=== PATIENT | male | born 1945 | race Caucasian/White ===

== ENCOUNTER 2017-08-28 06:32 | Day surgery (SDC) | payer MEDICARE ==
[~2017-08-28] VITALS: Ht 182.9 cm; Wt 62.4 kg
[2017-08-28] VITALS (12 sets, daily range): BP systolic 128–149; BP diastolic 64–77; PULSE 76–90; RESP 16–18; TEMP 97.7–98.6; O2SAT 96–100
[2017-08-28] MEDS ORDERED: IOHEXOL 350 MG/ML 100 ML BTL (for Cath Lab) OTHER ONE (06:33)
[2017-08-28] MEDS ORDERED: DO NOT GIVE AM GLUCOPHAGE, GLUCOPHAGE XR, GLIPIZIDE, GLYBURIDE OR AVANDAMET PRN (07:00)
[2017-08-28] MEDS ORDERED: SODIUM CHLOR 0.9% 1000 ML INJ 1,000 ML IV SCH (07:00)
[2017-08-28] MEDS ORDERED: SODIUM CHLORIDE 0.9% FLUSH 10 ML FLUSH IV FLUSH PRN ×2 (07:00)
[2017-08-28] MEDS ORDERED: PROC10TA PO (07:29)
[2017-08-28] MEDS ORDERED: CILO100T PO (07:29)
[2017-08-28] MEDS ORDERED: K-TA10TA PO (07:29)
[2017-08-28] MEDS ORDERED: ONDA1TAB17 PO (07:29)
[2017-08-28] MEDS ORDERED: ASPI81TA11 PO (07:29)
[2017-08-28] MEDS ORDERED: VITA1000 PO (07:29)
[2017-08-28] MEDS ORDERED: BUPR300T PO (07:29)
[2017-08-28] MEDS ORDERED: LACT1TAB12 PO (07:29)
[2017-08-28] MEDS ORDERED: MULT-65 PO (07:29)
[2017-08-28] MEDS ORDERED: DILT-60 PO (07:29)
[2017-08-28] MEDS ORDERED: AMOX500C PO (07:29)
[2017-08-28] MEDS ORDERED: BENA25CA4 PO (07:29)
[2017-08-28] MEDS ORDERED: PARO40TA2 PO (07:29)
[2017-08-28] MEDS ORDERED: NIVO1INJ IV (07:29)
[2017-08-28] MEDS ORDERED: ALEV220T14 PO (07:29)
[2017-08-28] MEDS ORDERED: MIDAZOLAM HCL 2 MG/2 ML VIAL ONE ×2 (08:48→09:46)
[2017-08-28] MEDS ORDERED: HEPARIN SODIUM - IV 10,000 UNITS/10 ML VIAL ONE (08:49)
[2017-08-28] MEDS ORDERED: HEPARIN-NS/PF INJ 1,000 ML ONE ×2 (08:56→09:06)
[2017-08-28] MEDS ORDERED: CLOPIDOGREL 300 MG TAB ONE (10:34)
[2017-08-28] MEDS ORDERED: hydrALAZINE HCL 20 MG/ML VIAL ONE (10:35)
[2017-08-28] MEDS ORDERED: PROTAMINE SULFATE 50 MG/5 ML VIAL ONE (10:41)
[2017-08-28] MEDS ORDERED: PLAV75TA29 PO (10:48)
[2017-08-28] MEDS ORDERED: oxyCODONE/ACETAMINOPHEN 5 MG/325 MG TAB PO PRN (11:00)
[2017-08-28] MEDS ORDERED: oxyCODONE/ACETAMINOPHEN 10 MG/325 MG TAB PO PRN (11:00)
[2017-08-28] MEDS ORDERED: MORPHINE SULFATE 4 MG/ML INJ IV PUSH PRN (11:00)
[2017-08-28] MEDS ORDERED: ACETAMINOPHEN 325 MG TAB PO PRN (11:00)
--- NOTE | 2017-08-28 11:22 | MA ---
cc: MARK DENT DATE: 08/28/2017 INDICATION Nonhealing ulcer, left lower extremity. PROCEDURE PERFORMED 1. Fluoroscopy with interpretation. 2. Descending aortography. 3. Left lower extremity peripheral angiography with first, second and third order visualization and interpretation. 4. Orbital rotational atherectomy, balloon angioplasty and drug-eluting balloon of the left superficial femoral artery. 5. Percutaneous endovascular stenting of chronically occluded left external iliac artery. METHOD The risks, benefits and alternatives were discussed with the patient. The patient understood and consented to the procedure. The patient was brought into the catheterization lab and placed on the catheterization table. The right groin was prepped and draped in sterile fashion. The right groin was anesthetized with 2% lidocaine. The common femoral artery was cannulated and a 5 Fijian, 11 cm sheath was placed without difficulty. DESCENDING AORTOGRAPHY Descending aortography was performed anterior and posterior using a 24 cc contrast injection with good opacification. The descending aortography revealed mild infrarenal descending aortic atherosclerosis. Bilateral renal arteries were widely patent. LEFT LOWER EXTREMITY PERIPHERAL ANGIOGRAPHY 1. Left common and internal iliac arteries have minor luminal irregularities. 2. Left external iliac artery is occluded. 3. Left common femoral artery recanalizes in the proximal segment via collaterals. 4. Left profunda artery is widely patent. 5. Left superficial femoral artery has a calcified 75% stenosis in the midsegment. 6. Left popliteal artery has minor luminal irregularities. 7. There is three-vessel runoff. 8. Anterior tibial, posterior tibial and peroneal vessels have minor luminal irregularities. PERCUTANEOUS INTERVENTION Given the patient's nonhealing ulcer we elected attempt at endovascular revascularization to help speed along healing. A 6 Fijian, 45 cm Vennli Destination Marshall sheath was advanced up-and-over the arch. A 0.035 inch, 260 cm stiff angle Glidewire was navigated behind a Trailblazer catheter through the chronic occlusion and down into the distal anterior tibial vessel. Digital subtraction angiography confirmed intraluminal placement. A 6.0 x 120 mm Medtronic balloon was deployed in the left external iliac artery. Repeat angiography showed SHASHANK-III flow but a dissection flap was present. Several prolonged inflations were performed but we were unable to tack the dissection flap up at the distal reentry in the proximal common femoral. We elected to proceed with endovascular stenting of the left external down towards the left common femoral but not passing the inferior epigastric artery. An 8.0 x 80 mm Medtronic self-expanding stent was deployed and post dilated. A 2.0 mm CSI atherectomy catheter was then prepped and orbital rotational atherectomy performed in the left superficial femoral artery followed by 6.0 x 100 mm prolonged drug-coated balloon inflation. Repeat angiography showed no significant residual stenosis. Heparin was administered throughout the entire procedure to maintain appropriate anticoagulation. At this point he had palpable distal pulses. Hopefully this will translate well with symptomatic improvement. Will see if the dissection in the left common femoral heels and tacks itself up. If not, he may be a candidate just to have a local common femoral arterectomy and avoid a fem-fem bypass. Will initiate Plavix. Will monitor closely for any post-procedural complications. CONCLUSIONS 1. Chronically occluded left external iliac artery. 2. Severe left superficial femoral artery stenosis. 3. Mild infrarenal descending aortic atherosclerosis. 4. Successful endovascular stenting with self-expanding stent of the left external iliac artery. 5. Successful orbital rotational atherectomy with balloon angioplasty of the left superficial femoral artery. MD MANUEL Watkins/KASANDRA /10:50 AM /11:04 AM
[2017-08-28] MEDS: SODIUM CHLOR 0.9% 1000 ML INJ 1,000 ML IV SCH ×2 (12:00→13:36)
[2017-08-29] VITALS (10 sets, daily range): BP systolic 151–159; BP diastolic 81–84; PULSE 78–92; RESP 16–18; TEMP 98.1; O2SAT 97–98
--- NOTE | 2017-08-29 08:22 | PD.CARD.PN ---
Subjective Subjective Remarks The patient denies chest pain, shortness of breath, bleeding or GI symptoms. Telemetry reveals sinus rhythm with short atrial runs. Objective Medications Current Medications Medications (Trade) Dose Ordered Sig/Gilberto Route Start Time Stop Time Status Last Admin (NS Flush) 2 ml UNSCH PRN IV FLUSH 08/28/17 07:00 (NS Flush) 2 ml UNSCH PRN IV FLUSH 08/28/17 07:00 Sodium Chloride 1,000 ml @ 0 mls/hr Q0M IV 08/28/17 07:00 08/30/17 06:59 Miscellaneous Information PREOP - DO NOT GIVE ... UNSCH PRN .XX 08/28/17 07:00 09/01/17 06:59 (Tylenol) 325 mg Q4H PRN PO 08/28/17 11:00 (Percocet 5-325 Mg) 1 tab Q4H PRN PO 08/28/17 11:00 (Percocet 10-325 Mg) 1 tab Q4H PRN PO 08/28/17 11:00 (Morphine Inj) 2 mg Q30M PRN IV PUSH 08/28/17 11:00 (Plavix) 75 mg DAILY PO 08/29/17 09:00 Vital Signs / I&O Vital Signs Date Time Temp Pulse Resp B/P (MAP) Pulse Ox O2 Delivery O2 Flow Rate FiO2 08/29/17 06:00 82 08/29/17 05:00 82 08/29/17 04:00 82 08/29/17 03:53 83 16 151/84 (106) 98 08/29/17 03:00 87 08/29/17 02:00 78 08/29/17 01:00 92 08/29/17 00:00 78 08/28/17 23:30 77 18 149/70 (96) 96 08/28/17 23:00 79 08/28/17 22:00 82 08/28/17 21:00 76 08/28/17 20:00 80 08/28/17 19:00 81 08/28/17 19:00 98.6 76 18 146/77 (100) 98 08/28/17 18:00 90 08/28/17 17:00 85 08/28/17 16:15 85 08/28/17 15:00 98.0 80 16 128/67 (87) 98 08/28/17 15:00 82 08/28/17 13:30 98.0 76 16 144/64 (90) 100 08/28/17 13:02 18 08/28/17 12:00 99 Room Air I/O 08/28/17 08/28/17 08/28/17 08/29/17 08/29/17 08/29/17 07:00 15:00 23:00 07:00 15:00 23:00 Intake Total 730 ml 1400 ml Output Total 0 ml 500 ml Balance 730 ml 900 ml Intake Oral 480 ml 400 ml IV Total 250 ml 1000 ml Output Urine Total 500 ml Stool Total 0 ml 0 ml # Voids 2 Physical Exam GENERAL: Well-nourished, well-developed patient in no apparent distress. SKIN: Warm and dry. NECK: JVD normal - less than or equal to 5 cm H20. CARDIOVASCULAR: Regular rate and rhythm without murmurs, gallops, or rubs. RESPIRATORY: Normal breath sounds - equal bilaterally. No accessory muscle use. No wheezes, rales or rubs. PERIPHERY: No cyanosis, or edema. Right groin dry without hematoma. Assessment and Plan Assessment and Plan The patient is doing well after peripheral vascular intervention. He'll be discharged today. His home medication has not been ordered but he will take this upon leaving. Groin care was discussed and he will follow-up with Dr. Randolph Goetz. He will continue on his home medication except for discontinuation of cilostazol and he will be on Plavix. All questions were answered. Wilner Montaño MD Aug 29, 2017 08:22
[2017-08-29] MEDS ORDERED: CLOPIDOGREL 75 MG TAB PO SCH (09:00)
== END 2017-08-29 10:43 | disposition home or self-care (01) ==
LOC: HDOC 06:32 → HDIC 06:32 → HCIN 13:25 → HDOC 08-29 10:43
PROVIDERS: ATTEND Internal Medicine
DX: I70.212 Atherosclerosis of native arteries of extremities with intermittent claudication, left leg (principal); I70.0 Atherosclerosis of aorta; I10 Essential (primary) hypertension; I48.91 Unspecified atrial fibrillation; J44.9 Chronic obstructive pulmonary disease, unspecified
CPT/HCPCS: 37221; 37225; 75625; 75710; 85002; 86850; 86900; 86901; C1714; C1725; C1751; C1769; C1876; C1893; C2623; J0360; J1644; J2250; J2720; J3010; J7030; Q9967